=== PATIENT | male | born 1995 | race American Indian/Alaskan Native ===

== ENCOUNTER 2019-12-24 05:41 | Emergency (ER) | payer OTHER ==
[2019-12-24] MEDS ORDERED: SODIUM CHLORIDE 0.9% 1000 ML 1,000 ML IV ONE (06:34)
[2019-12-24] MEDS ORDERED: fentaNYL 100 MCG/2 ML INJ IV ONE (06:34)
[2019-12-24] MEDS ORDERED: ONDANSETRON 4 MG/2 ML INJ IV ONE (06:34)
--- NOTE | 2019-12-24 06:38 | XRay Report ---
EXAMINATION: Right shoulder radiograph, 2 views CLINICAL INFORMATION: Right shoulder dislocation COMPARISON: None. FINDINGS: There is dislocation of the right glenohumeral joint with the humeral head lying inferior a nd medial with relation to the glenoid. Signer Name: Tracy Jackson MD Signed: 12/24/2019 6:34 AM Workstation Name: [id number]
--- NOTE | 2019-12-24 06:41 | Emergency Department Report ---
ED General Adult HPI - General Chief complaint: Extremity Injury, Upper Stated complaint: RIGHT SHOULDER PAIN Time Seen by Provider: 12/24/19 06:32 Source: patient Mode of arrival: Ambulatory Limitations: No Limitations - History of Present Illness Initial comments: Patient is 24 years old male with no significant past medical history. Patient brought to the emergency room via EMS from home for evaluation of right shoulder pain. Patient stated that he was helping his girlfriend moving a dresser when this happened just prior to coming to the ER. Patient denied any other injuries. - Related Data Previous Rx's Medication Instructions Recorded Last Taken Type Acetaminophen/Codeine [Tylenol 1 tab PO Q6H PRN #10 tab 11/16/19 Unknown Rx /Codeine # 3 tab] Ibuprofen [Motrin] 800 mg PO Q8HR PRN #30 tablet 11/16/19 Unknown Rx Sulfamethoxazole/Trimethoprim 1 each PO Q12H #20 tablet 11/16/19 Unknown Rx [Bactrim DS TAB] Naproxen [Naprosyn] 500 mg PO BID #14 tablet 12/24/19 Unknown Rx Allergies Allergy/AdvReac Type Severity Reaction Status Date / Time amoxicillin Allergy Swelling Verified 10/18/19 02:08 ED Review of Systems ROS: Stated complaint: RIGHT SHOULDER PAIN Other details as noted in HPI Comment: All other systems reviewed and negative Constitutional: denies: chills, fever Respiratory: denies: cough, shortness of breath Cardiovascular: denies: chest pain, palpitations Gastrointestinal: denies: abdominal pain, nausea, vomiting Musculoskeletal: denies: back pain ED Past Medical Hx - Past Medical History Previous Medical History?: No - Surgical History Past Surgical History?: Yes Additional Surgical History: steel plate to right hand on 10/13/19 - Social History Smoking Status: Current Every Day Smoker Substance Use Type: None - Medications Home Medications: Home Medications Medication Instructions Recorded Confirmed Last Taken Type Acetaminophen/Codeine [Tylenol 1 tab PO Q6H PRN #10 tab 11/16/19 Unknown Rx /Codeine # 3 tab] Ibuprofen [Motrin] 800 mg PO Q8HR PRN #30 tablet 11/16/19 Unknown Rx Sulfamethoxazole/Trimethoprim 1 each PO Q12H #20 tablet 11/16/19 Unknown Rx [Bactrim DS TAB] Naproxen [Naprosyn] 500 mg PO BID #14 tablet 12/24/19 Unknown Rx ED Physical Exam - General Limitations: No Limitations General appearance: alert, in distress (Secondary to pain.) - Head Head exam: Present: atraumatic, normocephalic, normal inspection - Eye Eye exam: Present: normal appearance, PERRL - ENT ENT exam: Present: normal exam, normal orophraynx, mucous membranes moist - Neck Neck exam: Present: normal inspection, full ROM. Absent: tenderness, meningismus, lymphadenopathy, thyromegaly - Respiratory Respiratory exam: Present: normal lung sounds bilaterally. Absent: chest wall tenderness - Cardiovascular Cardiovascular Exam: Present: regular rate, normal rhythm, normal heart sounds - GI/Abdominal GI/Abdominal exam: Present: soft, normal bowel sounds. Absent: distended, tenderness, guarding, rebound, rigid, organomegaly, mass, bruit, pulsatile mass, hernia - Expanded Upper Extremity Exam Right Shoulder Exam: Present: tenderness, dislocation. Absent: swelling, laceration, ecchymosis Upper Arm exam: Present: normal inspection, full ROM. Absent: tenderness Elbow exam: Present: normal inspection, full ROM. Absent: tenderness, swelling Forearm Wrist exam: Present: normal inspection, full ROM. Absent: tenderness Hand Wrist exam: Present: normal inspection, full ROM. Absent: tenderness Neuro motor exam: Present: wrist extension intact, thumb opposition intact, thumb IP flexion intact, thumb adduction intact, fingers 2-5 abduction intact Neurosensory exam: Present: 2-point discrimination, radial nerve intact, ulnar nerve intact, median nerve intact Vascular: Present: normal capillary refill - Back Exam Back exam: Present: normal inspection, full ROM. Absent: CVA tenderness (R), CVA tenderness (L) - Neurological Exam Neurological exam: Present: alert, oriented X3, CN II-XII intact, normal gait, reflexes normal - Psychiatric Psychiatric exam: Present: normal mood - Skin Skin exam: Present: warm, intact, normal color ED Course Vital Signs 12/24/19 12/24/19 12/24/19 05:45 06:20 06:30 Temperature 98.0 F Temperature [ Pre-Procedure] Pulse Rate 100 H 59 L Pulse Rate [ Intra-Procedure ] Pulse Rate [ Post-Procedure] Pulse Rate [Pre -Procedure] Respiratory 20 21 Rate Respiratory Rate [Intra- Procedure] Respiratory Rate [Post- Procedure] Respiratory Rate [Pre- Procedure] Blood Pressure 137/94 156/108 Blood Pressure [Intra- Procedure] Blood Pressure [Post-Procedure ] Blood Pressure [Pre-Procedure] O2 Sat by Pulse 98 98 100 Oximetry O2 Sat by Pulse Oximetry [ Intra-Procedure ] O2 Sat by Pulse Oximetry [Post -Procedure] O2 Sat by Pulse Oximetry [Pre- Procedure] 12/24/19 12/24/19 12/24/19 06:34 06:46 07:00 Temperature Temperature [ Pre-Procedure] Pulse Rate 59 L 73 Pulse Rate [ Intra-Procedure ] Pulse Rate [ Post-Procedure] Pulse Rate [Pre -Procedure] Respiratory 16 16 12 Rate Respiratory Rate [Intra- Procedure] Respiratory Rate [Post- Procedure] Respiratory Rate [Pre- Procedure] Blood Pressure 156/108 156/108 Blood Pressure [Intra- Procedure] Blood Pressure [Post-Procedure ] Blood Pressure [Pre-Procedure] O2 Sat by Pulse 100 95 97 Oximetry O2 Sat by Pulse Oximetry [ Intra-Procedure ] O2 Sat by Pulse Oximetry [Post -Procedure] O2 Sat by Pulse Oximetry [Pre- Procedure] 12/24/19 12/24/19 12/24/19 07:16 07:30 07:42 Temperature Temperature [ 98.7 F Pre-Procedure] Pulse Rate 75 75 Pulse Rate [ 78 Intra-Procedure ] Pulse Rate [ 76 Post-Procedure] Pulse Rate [Pre 57 L -Procedure] Respiratory 14 16 Rate Respiratory 15 Rate [Intra- Procedure] Respiratory 16 Rate [Post- Procedure] Respiratory 18 Rate [Pre- Procedure] Blood Pressure 120/71 120/71 Blood Pressure 133/107 [Intra- Procedure] Blood Pressure 147/74 [Post-Procedure ] Blood Pressure 120/71 [Pre-Procedure] O2 Sat by Pulse 100 100 Oximetry O2 Sat by Pulse 78 L Oximetry [ Intra-Procedure ] O2 Sat by Pulse 100 Oximetry [Post -Procedure] O2 Sat by Pulse 100 Oximetry [Pre- Procedure] 12/24/19 12/24/19 12/24/19 07:46 08:00 08:16 Temperature Temperature [ Pre-Procedure] Pulse Rate 81 77 70 Pulse Rate [ Intra-Procedure ] Pulse Rate [ Post-Procedure] Pulse Rate [Pre -Procedure] Respiratory 16 15 17 Rate Respiratory Rate [Intra- Procedure] Respiratory Rate [Post- Procedure] Respiratory Rate [Pre- Procedure] Blood Pressure 147/74 147/74 144/72 Blood Pressure [Intra- Procedure] Blood Pressure [Post-Procedure ] Blood Pressure [Pre-Procedure] O2 Sat by Pulse 100 100 100 Oximetry O2 Sat by Pulse Oximetry [ Intra-Procedure ] O2 Sat by Pulse Oximetry [Post -Procedure] O2 Sat by Pulse Oximetry [Pre- Procedure] 12/24/19 12/24/19 12/24/19 08:30 08:45 09:00 Temperature Temperature [ Pre-Procedure] Pulse Rate 91 H 96 H 93 H Pulse Rate [ Intra-Procedure ] Pulse Rate [ Post-Procedure] Pulse Rate [Pre -Procedure] Respiratory 17 9 L 18 Rate Respiratory Rate [Intra- Procedure] Respiratory Rate [Post- Procedure] Respiratory Rate [Pre- Procedure] Blood Pressure 144/72 129/58 129/58 Blood Pressure [Intra- Procedure] Blood Pressure [Post-Procedure ] Blood Pressure [Pre-Procedure] O2 Sat by Pulse 97 94 Oximetry O2 Sat by Pulse Oximetry [ Intra-Procedure ] O2 Sat by Pulse Oximetry [Post -Procedure] O2 Sat by Pulse Oximetry [Pre- Procedure] 12/24/19 12/24/19 09:15 09:31 Temperature Temperature [ Pre-Procedure] Pulse Rate 82 97 H Pulse Rate [ Intra-Procedure ] Pulse Rate [ Post-Procedure] Pulse Rate [Pre -Procedure] Respiratory 10 L 19 Rate Respiratory Rate [Intra- Procedure] Respiratory Rate [Post- Procedure] Respiratory Rate [Pre- Procedure] Blood Pressure 131/75 129/81 Blood Pressure [Intra- Procedure] Blood Pressure [Post-Procedure ] Blood Pressure [Pre-Procedure] O2 Sat by Pulse 96 98 Oximetry O2 Sat by Pulse Oximetry [ Intra-Procedure ] O2 Sat by Pulse Oximetry [Post -Procedure] O2 Sat by Pulse Oximetry [Pre- Procedure] - Moderate Sedation Indications: fracture/dislocation redu ASA Class: II Mallampati Airway Score: 2 Preparation: quality assurance monitor applied, pulse oximeter, capnometry used, supplemental O2 applied, reversal agents at bedside, suction/airway equipment at bedside, IV secured Fentanyl: IV Midazolam: IV Complications: none Patient Tolerated Procedure: well, no complications - Orthopedic Joint Reduction Joint #1 Consent Obtained: verbal consent Time Out Performed: Yes Side: right Joint Reduction Location: shoulder Analgesia: moderate sedation Shoulder Technique Used (if applicable): traction/counter-traction Technique Used: traction/counter-traction Post-Reduction Neuro Exam: intact Post-Reduction Vascular Exam: intact Post Reduction X-Ray Obtained: Yes Post Reduction X-Ray Results: reduced Splint Applied: Yes Patient Tolerated Procedure: well, no complications ED Medical Decision Making - Radiology Data Radiology results: report reviewed - Medical Decision Making Patient is 24 years old male with no significant past medical history. Patient brought to the emergency room via EMS from home for evaluation of right shoulder pain. Patient stated that he was helping his girlfriend moving a dresser when this happened just prior to coming to the ER. Patient denied any other injuries. Right shoulder x-ray showed a right shoulder anterior dislocation. Patient underwent a successful reduction by me using a conscious sedation. Patient tolerated procedure very well. Right arm sling applied. Patient evaluated by me multiple times after the sedation. Patient now is alert and oriented x3 and he walked to the bathroom with no difficulties. Patient advised to follow-up with orthopedics in the next 2 to 3 days and to return to the ER if he develop any new symptoms. Critical care attestation.: If time is entered above; I have spent that time in minutes in the direct care of this critically ill patient, excluding procedure time. ED Disposition Clinical Impression: Dislocation of right shoulder joint Disposition: DC-01 TO HOME OR SELFCARE Is pt being admited?: No Condition: Stable Instructions: Shoulder Dislocation (ED), Moderate Sedation (ED) Prescriptions: Naproxen [Naprosyn] 500 mg PO BID #14 tablet Referrals: KARISSA BREAUX MD [Staff Physician] - 3-5 Days
[2019-12-24] MEDS ORDERED: MIDAZOLAM 5 MG/5 ML INJ MDV IV ONE (07:14)
[2019-12-24] MEDS ORDERED: fentaNYL 250 MCG/5 ML INJ IV ONE (07:59)
[2019-12-24] MEDS ORDERED: MIDAZOLAM 5 MG/5 ML INJ MDV IV NR (08:00)
--- NOTE | 2019-12-24 08:05 | XRay Report ---
SINGLE VIEW RIGHT SHOULDER 7:27 AM INDICATION: Post reduction x-ray.. COMPARISON: Earlier same day FINDINGS: Right shoulder dislocation has been reduced. No fracture is seen. IMPRESSION: 1. Satisfactory postreduction appearance. Signer Name: Gregorio Velazquez MD Signed: 12/24/2019 8:00 AM Workstation Name: [id number]
[2019-12-24 09:44] VITALS: BP 129/81
== END 2019-12-24 11:00 | disposition home or self-care (01) ==
LOC: ED 05:41
DX: S43.004A Unspecified dislocation of right shoulder joint, initial encounter (principal); F17.200 Nicotine dependence, unspecified, uncomplicated; Z79.899 Other long term (current) drug therapy; Z88.1 Allergy status to other antibiotic agents; X50.9XXA Other and unspecified overexertion or strenuous movements or postures, initial encounter; Y93.89 Activity, other specified; Y92.89 Other specified places as the place of occurrence of the external cause; Y99.8 Other external cause status
CPT/HCPCS: 23650; 73020; 73030; 96361; 96374; 99285; J2250; J2405; J3010; J7030; 96375; 96376